=== PATIENT | female | born 2000 | race Caucasian/White ===

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

== ENCOUNTER 2018-05-30 21:35 | Emergency (ER) | END 2018-05-31 04:07 | disposition home or self-care (01) ==

== ENCOUNTER 2019-02-19 02:23 | Emergency (ER) | payer BC, OTHER ==
[~2019-02-19] VITALS: Ht 165.1 cm; Wt 108.2 kg
[~2019-02-19 02:23] MED LIST changes: -ALBU8.5H5 IH; +AMOX1TAB10 PO; +CARB15DR50 LEFT EAR; +CIPR500T4 PO; +CIPR7.5D BOTH EARS; -CLOT30CR24 TOP; +IBUP-1542 PO; +IBUP800T48 PO; +TRIA15CR55 TOP; -UDROBDM PO; +[UNRECOGNIZED DRUG - OTHER] PO
[2019-02-19 02:28] VITALS: Ht 165.1 cm; Wt 108.2 kg
[2019-02-19] MEDS ORDERED: FAMOTIDINE 20 MG INJ IV STA (02:53)
[2019-02-19] MEDS ORDERED: DIPHENHYDRAMINE 50 MG INJ IV STA (02:53)
[2019-02-19] MEDS ORDERED: SOD CHLORIDE 0.9% 1,000 ML IV ONE (03:00)
[2019-02-19] MEDS ORDERED: DEXAMETHASONE 10 MG/ML 1 ML INJ IV ONE (03:00)
[2019-02-19] MEDS ORDERED: DIPHENHYDRAMINE 50 MG CAP PO ONE (03:13)
[2019-02-19 04:02] VITALS: BP 107/65; PULSE 74; RESP 22
== END 2019-02-19 04:28 | disposition home or self-care (01) ==
LOC: E/R 02:23
DX: L29.9 Pruritus, unspecified (principal)
CPT/HCPCS: 96374; 96375; J1100; J7030; Z7502; Z7610